=== PATIENT | female | born 1950 | race Caucasian/White ===

== ENCOUNTER 2022-02-23 10:07 | Outpatient (CLI) | payer MEDICARE | END 2022-02-23 10:08 | disposition home or self-care (01) | LOC: MRI 10:07 | PROVIDERS: ATTEND Orthopaedic Surgery | DX: M47.26 Other spondylosis with radiculopathy, lumbar region (principal); Z13.820 Encounter for screening for osteoporosis; Z78.0 Asymptomatic menopausal state | CPT/HCPCS: 72148; 77080 ==

== ENCOUNTER 2022-02-23 11:31 | Outpatient (CLI) | payer MEDICARE | END 2022-02-23 11:32 | disposition home or self-care (01) | LOC: BICMAMMO 11:31 | PROVIDERS: ATTEND Orthopaedic Surgery | DX: Z13.820 Encounter for screening for osteoporosis (principal); Z78.0 Asymptomatic menopausal state | CPT/HCPCS: 77080 ==